=== PATIENT | male | born 1970 | race Caucasian/White ===

== ENCOUNTER 2023-07-26 11:04 | Outpatient (CLI) | payer BC, SELFPAY ==
--- NOTE | 2023-07-26 11:15 | US_ITS ---
Patient: EREN SALDANA Facility:?[facility] Patient ID:?[id number] Site Patient ID:?[id number]. Site :?[id number] Study:?US-Thyroid Right RT THYROID FNA / DR. HEAD TO AMBER-07/26/2023 12:05:27 PM Ordering Physician:?YVONNE CRAWFORD M.D. Final Report: INDICATION : Right thyroid nodule. TECHNIQUE : Ultrasound-guided fine needle aspiration of thyroid nodule. Comparison : 07/12/2023 FINDINGS : PROCEDURE: After the informed consent and time-out, multiple fine needle aspirations were obtained from the thyroid nodule. Fine needle performed. 25 gauge needles were used. Lidocaine was used for local anesthesia. The preliminary cytology was adequate for interpretation. Real-time imaging was used for guidance and needle placement. Post imaging ultrasound demonstrates no immediate complication. IMPRESSION : Successful fine needle aspiration of right thyroid nodule. Dictated by Pino Head MD @ 07/26/2023 12:44:26 PM Signed by:?Pino Head MD @07/26/2023 12:44:26 PM (Electronic Signature)
== END 2023-07-26 11:05 | disposition home or self-care (01) ==
LOC: US 11:07
PROVIDERS: PCP Surgery; Visit Provider Surgery
DX: E04.1 Nontoxic single thyroid nodule (principal)
CPT/HCPCS: 10005; 88173

== ENCOUNTER 2023-09-12 06:14 | Inpatient (IN) | payer BC, SELFPAY ==
[2023-09-12] VITALS (21 sets, daily range): BP systolic 96–128; BP diastolic 51–82; PULSE 65–81; RESP 10–16; TEMP 35.9–36.9; O2SAT 94–100; BMI 26.4
[2023-09-12] MEDS: SODIUM CHLORIDE 0.9 % (FLUSH) 10 ML SYRINGE IVF (06:45)
[2023-09-12] MEDS: LACTATED RINGERS 1000 ML 1,000 ML 100 ML IV ×3 (06:45→15:10)
--- NOTE | 2023-09-12 07:17 | W.PM.H&PU ---
History & Physical Update History & Physical Update H&P Reviewed and patient assessed: No changes noted
[2023-09-12] MEDS: CEFAZOLIN 2 GM INJ IVP (07:40)
[2023-09-12] MEDS: BUPIVACAINE 0.25% 30 ML INJECTION (08:08)
--- NOTE | 2023-09-12 10:03 | PM.GSPRC ---
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 It was recommended he undergo diagnostic right hemithyroidectomy. Please see Dr. Crow's documentation for pre-operative discussion and decision-making. Procedure Description: I arrived to the OR with the patient intubated and sedated. Dr. Crow had just completed creating the subplatysmal flaps. I provided retraction as she incised the midline raphe of the cervical fascia with cautery. I then retracted the thyroid medially while she dissected the wispy fibers between the strap muscles and thyroid capsule. We began our dissection superiorly. I retracted the superolateral aspect of the thyroid lobe inferiorly and medially. Dr. Crow then sequentially dissected through the fibers attaching the superior lobe to the strap muscles until the superior pole was encountered. A nodule was palpable in the mid to upper thyroid. We turned our attention medially and dissected in the space of Monroy, ligating small vessels with 3-0 Vicryl and clips before dividing them. Once this was done, I was able to expose the superior pole vessels for Dr. Crow. She dissected these carefully using a right angle. She then doubly ligated these with 2-0 Vicryl and clips before dividing them. Care was taken to stay on the gland. Attention was then turned inferiorly and laterally. The middle thyroid vein was dissected out by Dr. Crow. Again I provided medial retraction of the thyroid during this. The middle thyroid vein was then ligated and clipped before dividing. Attention was then turned to the inferior pole vessels. I then retracted the thyroid superiorly and medially. Dr. Crow carefully dissected out the inferior thyroid vessels, also ligating them with Vicryl ties as well as clipping before dividing. Care again was taken to stay on the gland. Structure that appeared to be the inferior parathyroid was left in place. I then reflected the thyroid anteriorly and medially while Dr. Crow dissected the posterior aspect of the thyroid. She did this carefully using a combination of cautery and the right angle, dissecting out small vessels. As we approached the area of the presumed recurrent laryngeal nerve, was avoided. The recurrent laryngeal nerve was identified. This was confirmed with the Nim monitor. This appeared to be in its usual location. Staying away from the nerve, Dr. Crow divided the ligament of Hyde and then began peeling the thyroid from the trachea. She took this dissection past the isthmus to the left side of the thyroid. She ligated small vessels on the anterior thyroid before dividing them with Vicryl ties. Once this was done she placed a clamp across the isthmus on the left of midline and divided this with cautery. Dr. Crow then oversewed the thyroid isthmus. Valsalva maneuver was performed to ensure hemostasis. Hemostasis appeared excellent. At this point I turned the case over to Dr. Crow. Please see her operative report for details. Findings: Palpable right thyroid nodule. Anesthesia: GETA Surgeon: Ramone Crow MD Co-Surgeon: Jennifer Triplett MD Estimated blood loss (mL): 10 Specimen: Other Additional Specimen Information: Right thyroid lobe and isthmus Condition: stable Disposition: PACU
--- NOTE | 2023-09-12 10:28 | W.ANESCHARGE ---
Anesthesia Charges Start Date/Time Anesthesia Start Date: 09/12/23 Anesthesia Start Time: 07:28 Stop Date/Time Anesthesia Stop Date: 09/12/23 Anesthesia Stop Time: 10:24
--- NOTE | 2023-09-12 10:32 | P.GSOP_ITS ---
Documented by User: Lashawn Crow MD 09/12/23 10:59 Operative Note Date of procedure: 09/12/23 Pre-op diagnosis: 1. 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 Post-op diagnosis: Same Type of Procedure: 1. Right thyroid lobectomy and isthmusectomy. Indications: 53-year-old male was seen in clinic with an incidentally found right thyroid lobe nodule. Patient underwent a screening lung CT in May of 2023 and was noted to have the right thyroid nodule. The ultrasound was then obtained and showed 3 x 2.4 cm solid and cystic right thyroid nodule. FNA was done in July 2023 and showed that the nodule was suspicious for Hurthle cell neoplasm. Patient denied any symptoms associated with his nodule. Given patient's final aspiration findings, discussion was held with regards to obtain molecular testing versus proceeding with a right thyroid lobectomy. We discussed with the patient that molecular testing might be false negative in jerrod cell neoplasms. Patient elected to proceed with right thyroid lobectomy. The procedure was discussed in detail. The risks associated procedure including infection, bleeding, injury to recurrent laryngeal nerve, and the need for additional procedures were all discussed with the patient, and he agreed to proceed. Patient's preoperative neck CT showed no lymphadenopathy. Patient's vocal cord check showed good cord mobility. Procedure Description: After discussing the risks and benefits of the procedure, the patient signed informed consent.? The operative site was marked and the patient was brought to the operating room and placed on the operating table in supine position.? Care was taken to pad the patient's pressure points.?? The patient was then intubated by anesthesia with NIM tube.?? The operative site was then prepped and draped in the usual sterile fashion.? A time-out was then performed. Neck skin incision was made with a scalpel in an existing crease about 1 finger breadth above the sternal notch. Subcutaneous tissues and platysma were divided with electrocautery. The platysma was extremely thin. Skin flaps were created superiorly and inferiorly. Fascia was divided and strap muscles were retracted laterally exposing the thyroid gland. We then directed our attention to the right side. Strap muscles were retracted laterally and thyroid gland was retracted medially exposing the wispy thyroid attachments. Those were divided with cautery. Vessels going to the superior pole of the thyroid were identified and divided with vicryl ties. Middle thyroid vein was ligated with vicryl ties as well. The gland was then retracted superiorly and medial. Inferior thyroid vasculature was dissected off and divided with vicryl ties. Throughout this dissection hemostasis was achieved with Vicryl ties and clips. The right recurrent laryngeal nerve was identified and care was taken to avoid its injury. Parathyroid glands on the right side were also visualized, and dissected off the thyroid gland and left in place. No lymphadenopathy was noted. Mobilization of the right side was then completed by dividing the ligament of Hyde on that side. We then proceeded with isthmusectomy. The thyroid isthmus was mobilized off the trachea with cautery. Hemostasis achieved with Vicryl ties and clips. The isthmus was then clamped with a Frederica to clamp near the border with the left thyroid gland and divided with cautery. The right thyroid lobe and isthmus was then marked with a stitch at the superior thyroid pole and sent to pathology. The previously clamped left thyroid tissue was then oversewn with 2-0 Vicryl suture. This was also marked with a Prolene stitch. The Prolene stitch was then pulled through the strap muscle and tied on the left side. The tail of the Prolene stitch was then clipped to the strap muscle for future identification. The surgical field was then examined for bleeding and no bleeding was seen. The else although maneuver was done to identify additional bleeding on the right side, and no bleeding was seen. Within proceed with incisional closure. Strap muscles and fascia were re- approximated with a running 3-0 vicryl suture. We placed several subdermal stitches with vicryl to relieve the tension off the tissues and re-approximate subcutaneous tissues. The skin was closed with 4-0 monocryl running subcuticular stitch. Steri strips, sterile 4x4 and Tegaderm were used to cover the incision. At the end of the case, counts were correct. Patient tolerated procedure well and was transferred to the PACU in stable condition. Findings: Palpable right thyroid lobe nodule, no lymphadenopathy noted. Anesthesia: GETA Surgeon: Lashawn Crow MD Co-Surgeon: Jennifer Triplett MD Estimated blood loss (mL): 10 Additional Specimen Information: 1. Right thyroid lobe and isthmus. 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 Type of Procedure: Right thyroid lobectomy and isthmusectomy.
--- NOTE | 2023-09-12 11:02 | W.ANESCHARGE ---
Anesthesia Charges Start Date/Time Anesthesia Start Date: 09/12/23 Anesthesia Start Time: 07:28 Stop Date/Time Anesthesia Stop Date: 09/12/23 Anesthesia Stop Time: 10:24
[2023-09-12] MEDS: ACETAMINOPHEN 325 MG TABLET 650 MG PO ×2 (15:17→21:30)
--- NOTE | 2023-09-12 19:13 | PC.NURSE ---
End of Shift: Patient pleasant and cooperative, A&O. VSS, afebrile. Denies nausea this shift. Patient reports pain on his neck rating anywhere from 2-6 out of 10, managed with PRN medication, see MAR. Dressing on neck C/D/I. Up independently to the bathroom. Tolerating clear liquid diet.
[2023-09-12 19:38] LABS: Calcium* 8.9 mg/dL (8.4-10.6)
[2023-09-13] MEDS: LACTATED RINGERS 1000 ML 1,000 ML 100 ML IV (00:37)
[2023-09-13 03:00] VITALS: BP 122/75; PULSE 78; RESP 16; TEMP 36.7; O2SAT 94
--- NOTE | 2023-09-13 04:00 | PC.NURSE ---
patient alert and oriented, up ind in room tolerating well, rating pain in neck 2-6/10 and headache 6-7/10 this is being managed with Tylenol, patient aware stronger medications are available if needed, declined other interventions such as ice, dressing to neck CDI.
[2023-09-13 06:28] LABS: Ionized Calcium* 1.08 mmol/L (1.11-1.30)
[2023-09-13 07:00] VITALS: BP 118/84; PULSE 78; RESP 18; TEMP 36.6; O2SAT 96
[2023-09-13 07:01] LABS: Calcium* 8.6 mg/dL (8.4-10.6)
[2023-09-13] MEDS: ACETAMINOPHEN 325 MG TABLET 650 MG PO (08:42)
--- NOTE | 2023-09-13 10:25 | PM.DS1 ---
DS: Providers Provider Date Seen: 09/13/23 Date of admission: 09/12/23 06:14 Primary care physician: Huber Santos MD Admitting Clinician: Lashawn Crow MD Attending Physician on discharge: Lashawn Crow MD DS: Diagnosis Discharge Diagnosis (1) S/P partial thyroidectomy: Status: Acute Problem details: right lobectomy and isthmusectomy DS: Summary Hospital Course Hospital Course: Patient underwent right thyroid lobectomy and isthmusectomy for a thyroid nodule that was suspicious for Hurthle cell neoplasm. Patient did well postoperatively. His total calcium remained normal but ionized calcium was slightly low. Patient was discharged home on [id number] oral calcium and vitamin-D supplements. Time Spent with Patient Time attestation: Total time spent providing and/or coordinating discharge services: Exam Narrative: Exam Narrative: Surgical incision is covered by clean dressing with no surrounding edema or hematoma. Const: Vital Signs, click to edit/add: Vital Signs - 24 hr 09/12/23 10:30 09/12/23 10:35 09/12/23 10:40 Temperature 97.1 F L 97.4 F L Pulse Rate 73 71 68 Pulse Rate [Left P ulse Oximeter] Respiratory Rate 14 12 12 Blood Pressure 121/82 111/65 110/66 Blood Pressure [Ri ght Arm] Pulse Oximetry 98 97 96 Oxygen Delivery Nv thod Room Air Room Air Room Air 09/12/23 10:45 09/12/23 10:50 09/12/23 11:00 Temperature 96.6 F L Pulse Rate 70 68 71 Pulse Rate [Left P ulse Oximeter] Respiratory Rate 10 L 12 14 Blood Pressure 96/60 105/63 107/73 Blood Pressure [Ri ght Arm] Pulse Oximetry 96 96 96 Oxygen Delivery Nv thod Room Air Room Air Room Air 09/12/23 11:00 09/12/23 11:15 09/12/23 11:30 Temperature 96.6 F L 96.7 F L 97.2 F L Pulse Rate 71 70 73 Pulse Rate [Left P ulse Oximeter] Respiratory Rate 14 14 16 Blood Pressure 107/73 107/63 114/72 Blood Pressure [Ri ght Arm] Pulse Oximetry 96 98 97 [facility] Room Air Room Air 09/12/23 11:45 09/12/23 12:00 09/12/23 12:30 Temperature 97.3 F L 97.6 F 97.6 F Pulse Rate 75 67 67 Pulse Rate [Left P ulse Oximeter] Respiratory Rate 12 14 Blood Pressure 103/74 98/72 102/69 Blood Pressure [Ri ght Arm] Pulse Oximetry 98 98 97 Oxygen Delivery Me thod Room Air Room Air Room Air 09/12/23 13:00 09/12/23 14:00 09/12/23 15:00 Temperature 97.6 F Pulse Rate 65 70 Pulse Rate [Left P ulse Oximeter] Respiratory Rate 16 Blood Pressure 107/70 115/75 Blood Pressure [Ri ght Arm] Pulse Oximetry 97 98 Oxygen Delivery Me thod Room Air Room Air 09/12/23 15:00 09/12/23 15:00 09/12/23 16:00 Temperature 98.0 F 98.0 F Pulse Rate 76 81 Pulse Rate [Left P ulse Oximeter] Respiratory Rate 14 14 16 Blood Pressure 112/76 112/76 Blood Pressure [Ri ght Arm] Pulse Oximetry 95 Oxygen Delivery Me thod Room Air Room Air 09/12/23 17:00 09/12/23 19:00 09/12/23 23:00 Temperature 97.9 F 98.0 F Pulse Rate 81 Pulse Rate [Left P ulse Oximeter] 74 Respiratory Rate 16 16 16 Blood Pressure 118/71 Blood Pressure [Ri ght Arm] 122/77 Pulse Oximetry 95 95 95 Oxygen Delivery Me thod Room Air Room Air Room Air 09/12/23 23:00 09/13/23 03:00 09/13/23 07:00 Temperature 98.0 F 98.0 F 97.9 F Pulse Rate Pulse Rate [Left P ulse Oximeter] 80 78 78 Respiratory Rate 16 16 18 Blood Pressure Blood Pressure [Ri ght Arm] 121/76 122/75 118/84 Pulse Oximetry 94 94 96 Oxygen Delivery Me thod Room Air Room Air Room Air 09/13/23 07:00 Temperature Pulse Rate Pulse Rate [Left P ulse Oximeter] Respiratory Rate 18 Blood Pressure Blood Pressure [Ri ght Arm] Pulse Oximetry 96 Oxygen Delivery Me thod Room Air DS: Data Data Completed and Pending Labs on day of discharge: Labs from last 24 hours 09/13/23 09/12/23 05:43 19:10 Calcium 8.6 8.9 Ionized Calcium Freddie 1.08 L 1.10 L Discharge Plan Discharge Disposition: Home, Self-Care Date of Admission: 09/12/23 06:14 Attending Provider on Discharge: Lashawn Crow Primary Care Provider: Huber Santos Condition: Stable Anticipated Discharge Date/Time: 09/13/23 10:30 Discharge Medications: Continued nitroglycerin 0.4 mg tablet, sublingual 0.4 mg sublingual Q5M PRN acetaminophen [Tylenol Extra Strength] 500 mg tablet 500 mg PO Q6H PRN Discharge Orders: Discharge Order (Routine); Ordered 09/13/23 Ordered By: Lashawn Crow Additional Instructions: Patient should take calcium with vitamin-D supplements that could be purchased [id number]. He should take 1 tablet daily for the next 2-3 weeks. Activity Level: No strenuous activity Activity Detail: Avoid lifting anything more than 15-20 lb for the first 2 weeks. Avoid strenuous activity that will increase blood flow to your head and neck. Take the surgical dressing off tomorrow and okay to shower tomorrow. Leave the Steri-Strips over the incision for the next 7-10 days. No submerging the incision under water such as in swimming for 2 weeks. Discharge Diet: Regular Follow Up Appointments: Lashawn Crow MD [Staff Physician] - (2 weeks [place]) Forms: [facility] Info Instructions
--- NOTE | 2023-09-13 13:25 | PC.NURSE ---
Discharge: Patient pleasant and cooperative, A&O. VSS, afebrile. Dressing on neck C/D/I. Discharge instructions provided to patient and his , all questions answered. IV removed with tip intact. Discharged to home with .
== END 2023-09-13 11:35 | disposition home or self-care (01) | DRG 404 ==
PROVIDERS: Admitting Provider Surgery; PCP Surgery; Visit Provider Surgery
PROC: 0GTJ0ZZ Resection of Thyroid Gland Isthmus, Open Approach (ICD-10-PCS; principal; 2023-09-12 07:30)
DX: D34 Benign neoplasm of thyroid gland (principal)
CPT/HCPCS: 00320; 36415; 76998; 82310; 82330; 88307; A9270; J0153; J0330; J0665; J0690; J1100; J1170; J1200; J2250; J2371; J2405; J2704; J3010; J7120